=== PATIENT | female | born 1980 | race Asian ===

== ENCOUNTER 2018-05-07 19:35 | Emergency (ER) | payer OTHER ==
[~2018-05-07] VITALS: Ht 165.1 cm; Wt 62.1 kg
[2018-05-07] MEDS ORDERED: cloNIDine HCL 0.1 MG TAB ONE (21:13)
[2018-05-07] MEDS ORDERED: cloNIDine HCL 0.1 MG TAB PO ONE (21:30)
[2018-05-07 21:49] LABS: Basophils # (auto) 0 uL; Basophils % (auto) 0.3 % (0.0-2.0); Eosinophils # (auto) 0 uL; Eosinophils % (auto) 0.2 % (0.0-7.0); Hematocrit 39.8 % (36.0-46.0); Hemoglobin 13.8 g/dL (12.2-16.2); Lymphocytes # (auto) 1.8 uL; Mean Corpuscular Hemoglobin 31.1 pg (28.0-32.0); Mean Corpuscular Hgb Conc. 34.7 g/dL (32.0-36.0); Mean Corpuscular Volume 89.6 fL (80.0-100.0); Monocytes # (auto) 0.6 uL; Monocytes % (auto) 6.6 % (0.0-12.0); Neutrophils # (auto) 7.2 uL; Neutrophils % (auto) 73.9 % (37.0-80.0); Platelet Count (auto) 246 10^3/uL (140-450); Red Blood Cells 4.44 10^6/uL (4.0-5.20); Red Cell Distribution Width 12.9 % (11.8-14.3); White Blood Cell 9.7 10^3/uL (4.4-10.8)
[2018-05-07 22:12] LABS: Chloride 109 mmol/L (98-107); Potassium 3.9 mmol/L (3.5-5.1); Sodium 138 mmol/L (136-145)
[2018-05-07 22:18] LABS: Partial Thromboplastin Time 26.8 sec (23.78-33.04); Prothrombin Time 10.7 sec (9.27-12.13)
[2018-05-07 22:22] LABS: Alanine Aminotransferase 20 U/L (13-56); Albumin 3.6 g/dL (3.4-5.0); Alkaline Phosphatase 43 U/L (45-117); Anion Gap 6 (5-15); Aspartate Aminotransferase 17 U/L (15-37); BUN/Creatinine Ratio 15.6; Bilirubin, Total 0.2 mg/dL (0.2-1.0); Blood Urea Nitrogen 10 mg/dL (7-18); Calcium 8.6 mg/dL (8.5-10.1); Carbon Dioxide 23 mmol/L (21-32); GFR African American 134 mL/min; GFR Non-African American 111 mL/min; Glucose 94 mg/dL (74-106); Magnesium 2.4 mg/dL (1.6-2.6); Total Protein 7.7 g/dL (6.4-8.2)
[2018-05-07 23:44] LABS: Urine WBC None Seen /hpf (0 - 5)
[2018-05-07] MEDS ORDERED: ASPirin-EC 325mg tab PO ONE (23:45)
[2018-05-08 00:06] LABS: Urine Bacteria NONE SEEN /hpf (None Seen); Urine Blood TRACE /uL (Negative); Urine Specific Gravity 1.005 (1.001-1.035)
[2018-05-08 00:07] LABS: Alcohol, Urine < 3.0 mg/dL (0-5); Amphetamine Screen, Urine NEGATIVE (NEGATIVE); Barbiturate Scree,Urine NEGATIVE (NEGATIVE); Benzodiazephine Screen, Urine NEGATIVE (NEGATIVE); Cannabinoid Screen, Urine NEGATIVE (NEGATIVE); Cocaine Screen, Urine NEGATIVE (NEGATIVE); Opiate Scree,Urine NEGATIVE (NEGATIVE); Phencyclidine Screen, Urine NEGATIVE (NEGATIVE)
[2018-05-08] MEDS ORDERED: cloNIDine HCL 0.1 MG TAB PO ONE (00:30)
[2018-05-08 01:10] VITALS: BP 124/84
== END 2018-05-08 01:56 | disposition home or self-care (01) ==
LOC: ER 19:42
DX: R07.9 Chest pain, unspecified (principal); I10 Essential (primary) hypertension
CPT/HCPCS: 36415; 71046; 80053; 80307; 81001; 83735; 83880; 84443; 84484; 84702; 85025; 85610; 85730

== ENCOUNTER 2022-03-30 20:44 | Emergency (ER) | payer OTHER ==
[~2022-03-30] VITALS: Ht 165.1 cm; Wt 62.0 kg
[2022-03-30 22:52] LABS: Urine Bacteria FEW /hpf (None Seen); Urine Blood 2+ /uL (Negative); Urine Specific Gravity 1.021 (1.001-1.035); Urine WBC 1 /hpf (0 - 5)
[2022-03-30 23:34] LABS: Basophils # (auto) 0 10 ^3/uL (0-0.2); Basophils % (auto) 0.7 % (0.0-2.0); Eosinophils # (auto) 0.1 10 ^3/uL (0-0.8); Eosinophils % (auto) 1.2 % (0.0-7.0); Hematocrit 37.5 % (36.0-46.0); Hemoglobin 12.6 g/dL (12.2-16.2); Lymphocytes # (auto) 2.1 10 ^3/uL (0.4-5.4); Lymphocytes % (auto) 34.2 % (10.0-50.0); Mean Corpuscular Hemoglobin 29.9 pg (28.0-32.0); Mean Corpuscular Hgb Conc. 33.6 g/dL (32.0-36.0); Mean Corpuscular Volume 88.9 fL (80.0-100.0); Monocytes # (auto) 0.5 10 ^3/uL (0-1.3); Monocytes % (auto) 7.5 % (0.0-12.0); Neutrophils # (auto) 3.5 10 ^3/uL (1.6-8.6); Neutrophils % (auto) 56.4 % (37.0-80.0); Nucleated Red Blood Cells % 0.1 %; Red Blood Cells 4.22 10^6/uL (4.0-5.20); Red Cell Distribution Width 13.2 % (11.8-14.3); White Blood Cell 6.2 10^3/uL (4.4-10.8)
[2022-03-30 23:51] LABS: Alanine Aminotransferase 20 U/L (13-56); Albumin 3.3 g/dL (3.4-5.0); Anion Gap 6 (5-15); Aspartate Aminotransferase 12 U/L (15-37); BUN/Creatinine Ratio 27.5; Blood Urea Nitrogen 19 mg/dL (7-18); Calcium 8.3 mg/dL (8.5-10.1); Carbon Dioxide 23 mmol/L (21-32); Chloride 111 mmol/L (98-107); GFR African American 121 mL/min; GFR Non-African American 100 mL/min; Glucose 107 mg/dL (74-106); Lipase 157 U/L (73-393); Sodium 140 mmol/L (136-145)
[2022-03-30 23:54] LABS: Alkaline Phosphatase 54 U/L (45-117); Bilirubin, Total < 0.1 mg/dL (0.2-1.0); Total Protein 7.1 g/dL (6.4-8.2)
[2022-03-31] MEDS ORDERED: ONDANSETRON HCL 4 MG/2 ML VIAL IV ONE (00:30)
[2022-03-31] MEDS: KETOROLAC TROMETH 30 MG/ML 1ML VIAL IV ONE ×2 (00:30→02:51)
[2022-03-31 02:00] VITALS: BP 146/91
== END 2022-03-31 05:21 | disposition home or self-care (01) ==
LOC: ER 20:47
DX: N39.0 Urinary tract infection, site not specified (principal); Z32.02 Encounter for pregnancy test, result negative
CPT/HCPCS: 36415; 74176; 80053; 81001; 81025; 83690; 84702; 85025; 96374; 99284; J1885

== ENCOUNTER 2022-07-14 10:17 | Inpatient (IN) | payer OTHER ==
[2022-07-14] VITALS (14 sets, daily range): BP systolic 108–140; BP diastolic 70–85
[~2022-07-14] VITALS: Ht 165.1 cm; Wt 65.7 kg
[~2022-07-14 10:17] MED LIST: SUMA50TA2 PO
[2022-07-14] MEDS ORDERED: ASPirin 325 MG TAB PO ONE (10:45)
[2022-07-14 10:56] LABS: Basophils # (auto) 0 10 ^3/uL (0-0.2); Basophils % (auto) 0.5 % (0.0-2.0); Eosinophils # (auto) 0 10 ^3/uL (0-0.8); Eosinophils % (auto) 0.4 % (0.0-7.0); Hematocrit 41.4 % (36.0-46.0); Hemoglobin 14.1 g/dL (12.2-16.2); Lymphocytes # (auto) 2.3 10 ^3/uL (0.4-5.4); Lymphocytes % (auto) 32.9 % (10.0-50.0); Mean Corpuscular Hemoglobin 30.9 pg (28.0-32.0); Mean Corpuscular Hgb Conc. 34.1 g/dL (32.0-36.0); Mean Corpuscular Volume 90.8 fL (80.0-100.0); Monocytes # (auto) 0.5 10 ^3/uL (0-1.3); Monocytes % (auto) 6.7 % (0.0-12.0); Neutrophils # (auto) 4.3 10 ^3/uL (1.6-8.6); Neutrophils % (auto) 59.5 % (37.0-80.0); Nucleated Red Blood Cells % 0.2 %; Red Blood Cells 4.56 10^6/uL (4.0-5.20); White Blood Cell 7.1 10^3/uL (4.4-10.8)
[2022-07-14 11:06] LABS: INR 1.04 (0.9-1.15); Partial Thromboplastin Time 27.9 sec (24.6-33.4)
[2022-07-14 11:09] LABS: Albumin 3.7 g/dL (3.4-5.0); Calcium 8.8 mg/dL (8.5-10.1); Magnesium 2.3 mg/dL (1.6-2.6); Potassium 4.3 mmol/L (3.5-5.1)
[2022-07-14 11:13] LABS: Bilirubin, Total 0.8 mg/dL (0.2-1.0); Total Protein 7.1 g/dL (6.4-8.2)
[2022-07-14] MEDS ORDERED: IODIXANOL 320MG/ML 100ML BTL IV ONE (11:56)
[2022-07-14] MEDS ORDERED: LIDOCAINE 2%HCL (LOCAL ANESTH.) INJ 10ml MDV ONE (11:56)
[2022-07-14] MEDS ORDERED: VERAPAMIL 2.5MG/ML INJ 2ML VIAL IV ONE (12:11)
[2022-07-14] MEDS ORDERED: HEPARIN SODIUM (PORCINE) 5000 UNITS/ML 1ML VIAL ONE (12:11)
[2022-07-14] MEDS ORDERED: fentaNYL CITRATE 100 MCG/2 ML VL ONE (12:11)
[2022-07-14] MEDS ORDERED: ANGIOMAX 250 MG VIAL IV ONE (12:11)
[2022-07-14] MEDS ORDERED: MIDAZOLAM HCL 2MG/2ML 2ml VIAL (1mg/ml) ONE (12:12)
[2022-07-14] MEDS ORDERED: SODIUM CHL 0.9% 0 ML ONE (12:12)
[2022-07-14] MEDS ORDERED: CLOPIDOGREL BISULFATE 75 MG TAB PO ONE (13:00)
[2022-07-14] MEDS ORDERED: MORPHINE SULFATE INJ 2 MG/ml SYRG IV PRN (13:30)
[2022-07-14] MEDS ORDERED: NITROGLYCERIN 0.4 MG SL TAB SL PRN (13:30)
[2022-07-14] MEDS ORDERED: CLOPIDOGREL 300 MG TAB ONE (17:25)
[2022-07-14] MEDS ORDERED: CLOPIDOGREL 300 MG TAB PO ONE (17:28)
[2022-07-15 05:00] VITALS: BP 112/68
[2022-07-15 09:00] VITALS: BP 113/76
[2022-07-15] MEDS ORDERED: ATORVASTATIN 20 MG TAB PO SCH (10:00)
[2022-07-15] MEDS ORDERED: ASPirin 81 mg TAB PO SCH (10:00)
[2022-07-15] MEDS ORDERED: CLOPIDOGREL BISULFATE 75 MG TAB PO SCH (10:00)
[2022-07-15] MEDS ORDERED: ENOXAPARIN SOD 60 MG/0.6 ML SYRINGE SC ONE (10:15)
[2022-07-15 13:00] VITALS: BP 115/81
[2022-07-15] MEDS ORDERED: CLOP75TA70 PO (13:22)
[2022-07-15] MEDS ORDERED: ASPI-325 PO (13:22)
[2022-07-15] MEDS ORDERED: ATOR20TA50 PO (13:22)
[2022-07-15 17:00] VITALS: BP 120/74
== END 2022-07-15 18:43 | disposition home or self-care (01) | DRG 280 ==
LOC: ER 10:17 → TELE 13:32 → TELE-WESTW 18:10
PROVIDERS: ADMIT Internal Medicine; ATTEND Internal Medicine
PROC: 4A023N7 Measurement of Cardiac Sampling and Pressure, Left Heart, Percutaneous Approach (ICD-10-PCS; principal; 2022-07-14)
PROC: B211YZZ Fluoroscopy of Multiple Coronary Arteries using Other Contrast (ICD-10-PCS; 2022-07-14)
PROC: B215YZZ Fluoroscopy of Left Heart using Other Contrast (ICD-10-PCS; 2022-07-14)
DX: I21.4 Non-ST elevation (NSTEMI) myocardial infarction (principal); I25.42 Coronary artery dissection; I10 Essential (primary) hypertension; G43.909 Migraine, unspecified, not intractable, without status migrainosus; Z79.02 Long term (current) use of antithrombotics/antiplatelets; Z79.899 Other long term (current) drug therapy; Z82.49 Family history of ischemic heart disease and other diseases of the circulatory system; Z20.822 Contact with and (suspected) exposure to COVID-19
CPT/HCPCS: 36415; 71045; 80053; 83735; 83880; 84484; 84702; 85025; 85610; 85730; 86850; 86900; 86901; 87426; 93005; 93306; 93458; 99152; 99291; G0378; J2001; J2250; Q9967

== ENCOUNTER 2022-07-20 09:51 | Emergency (ER) | payer OTHER ==
[~2022-07-20] VITALS: Ht 165.1 cm; Wt 65.9 kg
[~2022-07-20 09:51] MED LIST changes: +ASPI-325 PO; +ATOR20TA50 PO; +CLOP75TA70 PO
[2022-07-20 10:31] LABS: Basophils # (auto) 0 10 ^3/uL (0-0.2); Basophils % (auto) 0.5 % (0.0-2.0); Eosinophils # (auto) 0 10 ^3/uL (0-0.8); Eosinophils % (auto) 0.3 % (0.0-7.0); Hematocrit 39.1 % (36.0-46.0); Hemoglobin 13.5 g/dL (12.2-16.2); Lymphocytes # (auto) 1.5 10 ^3/uL (0.4-5.4); Lymphocytes % (auto) 25.3 % (10.0-50.0); Mean Corpuscular Hgb Conc. 34.5 g/dL (32.0-36.0); Mean Corpuscular Volume 89.7 fL (80.0-100.0); Monocytes # (auto) 0.5 10 ^3/uL (0-1.3); Monocytes % (auto) 7.9 % (0.0-12.0); Nucleated Red Blood Cells % 0.1 %; Red Blood Cells 4.36 10^6/uL (4.0-5.20); Red Cell Distribution Width 12.7 % (11.8-14.3); White Blood Cell 6.1 10^3/uL (4.4-10.8)
[2022-07-20 10:40] LABS: Albumin 3.4 g/dL (3.4-5.0); BUN/Creatinine Ratio 21.1; Potassium 3.9 mmol/L (3.5-5.1)
[2022-07-20 10:43] LABS: Bilirubin, Total 0.4 mg/dL (0.2-1.0); Total Protein 7.2 g/dL (6.4-8.2)
[2022-07-20 11:09] LABS: INR 1.08 (0.9-1.15); Partial Thromboplastin Time 26.6 sec (24.6-33.4)
[2022-07-20 14:48] VITALS: BP 123/81
== END 2022-07-20 14:49 | disposition home or self-care (01) ==
LOC: ER 09:51
DX: R07.89 Other chest pain (principal); Z79.82 Long term (current) use of aspirin; Z79.01 Long term (current) use of anticoagulants; Z79.899 Other long term (current) drug therapy
CPT/HCPCS: 36415; 71045; 80053; 84484; 85025; 85379; 85610; 85730; 93005

== ENCOUNTER 2022-12-17 10:12 | Emergency (ER) | payer OTHER ==
[~2022-12-17] VITALS: Ht 165.1 cm; Wt 61.4 kg
[2022-12-17 10:17] VITALS: BP 130/86
[2022-12-17] MEDS ORDERED: KETOROLAC TROMETH 30 MG/ML 1ML VIAL IV ONE (11:45)
[2022-12-17] MEDS ORDERED: KETOROLAC TROMETH 30 MG/ML 1ML VIAL IM ONE (12:00)
[2022-12-17] MEDS ORDERED: IBUP1TAB5 PO (12:45)
== END 2022-12-17 12:48 | disposition home or self-care (01) ==
LOC: ER 10:12
DX: G44.209 Tension-type headache, unspecified, not intractable (principal)
CPT/HCPCS: 96372; 99283; J1885

== ENCOUNTER 2022-12-26 11:52 | Emergency (ER) | payer OTHER ==
[~2022-12-26] VITALS: Ht 165.1 cm; Wt 59.0 kg
[~2022-12-26 11:52] MED LIST changes: +IBUP1TAB5 PO
[2022-12-26 12:43] LABS: Urine WBC None Seen /hpf (0 - 5)
[2022-12-26 13:10] LABS: Urine Bacteria NONE SEEN /hpf (None Seen); Urine Blood Negative /uL (Negative); Urine Specific Gravity 1.008 (1.001-1.035)
[2022-12-26 13:15] LABS: Basophils # (auto) 0 10 ^3/uL (0-0.2); Basophils % (auto) 0.4 % (0.0-2.0); Eosinophils # (auto) 0 10 ^3/uL (0-0.8); Eosinophils % (auto) 0.4 % (0.0-7.0); Hematocrit 41.4 % (36.0-46.0); Hemoglobin 14.1 g/dL (12.2-16.2); Lymphocytes # (auto) 1.5 10 ^3/uL (0.4-5.4); Lymphocytes % (auto) 21.9 % (10.0-50.0); Mean Corpuscular Hemoglobin 30.6 pg (28.0-32.0); Mean Corpuscular Hgb Conc. 34.1 g/dL (32.0-36.0); Mean Corpuscular Volume 89.7 fL (80.0-100.0); Monocytes # (auto) 0.4 10 ^3/uL (0-1.3); Monocytes % (auto) 5.6 % (0.0-12.0); Neutrophils # (auto) 4.9 10 ^3/uL (1.6-8.6); Neutrophils % (auto) 71.7 % (37.0-80.0); Red Blood Cells 4.62 10^6/uL (4.0-5.20); Red Cell Distribution Width 13.2 % (11.8-14.3); White Blood Cell 6.8 10^3/uL (4.4-10.8)
[2022-12-26 13:32] LABS: Calcium 9.3 mg/dL (8.5-10.1); Magnesium 2.5 mg/dL (1.6-2.6); Potassium 3.8 mmol/L (3.5-5.1)
[2022-12-26 13:50] VITALS: BP 141/90
[2022-12-26] MEDS ORDERED: IBUP-1456 PO (14:24)
== END 2022-12-26 14:28 | disposition home or self-care (01) ==
LOC: ER 11:52
DX: G44.209 Tension-type headache, unspecified, not intractable (principal); Z79.899 Other long term (current) drug therapy; Z87.440 Personal history of urinary (tract) infections
CPT/HCPCS: 36415; 70450; 80048; 81001; 83735; 85025

== ENCOUNTER 2024-10-19 18:38 | Emergency (ER) | payer OTHER ==
[~2024-10-19] VITALS: Ht 165.1 cm; Wt 65.0 kg
[~2024-10-19 18:38] MED LIST changes: +IBUP-1456 PO
--- NOTE | 2024-10-19 19:16 | ED.PDOC ---
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 Patient states she had no menstrual cycle for 1 year, began experiencing heavy vaginal bleeding yesterday as well as suprapubic pain/ cramping that radiates to low back. Patient states she uses about 5 pads per day. Patient has been seen by OBGYN Dr. Ferguson. PMHx HLD. Denies chest pain, shortness of breath, dizziness, nausea, vomiting, diarrhea, headache, fevers, chills. No other symptoms or modifying factors present at this time. Chief Complaint: Vaginal Bleed Time Seen by MD: 19:05 Reviewed Notes: Medications, Allergies Allergies: Coded Allergies: NO KNOWN ALLERGIES (Unverified , 05/07/18) Home Meds Active Scripts Ibuprofen (Ibuprofen) 800 Mg Tab, 1 TAB PO TID, #30 TAB Prov:DARCI MARS 12/26/22 Ibuprofen Micronized (Ibuprofen) 600 Mg Tab, 600 MG PO Q6HPRN PRN for 5 Days, #20 TAB Prov:OLVIN AVILA NP 12/17/22 Atorvastatin Calcium (ATORVASTATIN CALCIUM) 20 Mg Tab, 40 MG PO QPM for 30 Days, #60 TAB 1 Refill Prov:RUDY RAE MD 07/15/22 Clopidogrel Bisulfate (CLOPIDOGREL) 75 Mg Tab, 75 MG PO DAILY for 30 Days, #30 TAB Prov:RUDY RAE MD 07/15/22 Aspirin (Aspirin Low Dose) 81 Mg Tab, 81 MG PO DAILY for 30 Days, #30 TAB Prov:RUDY RAE MD 07/15/22 Sumatriptan Succinate (Imitrex) 50 Mg Tab, 50 MG PO BID, #20 TAB Prov:DARCI MARS 05/16/22 Information Source: Patient Mode of Arrival: Ambulatory Timing: Days Prehospital treatment: None Severity: Moderate Vaginal Discharge: None Vaginal Lesions: None Bleeding Quality: Bright Red Vaginal Mass: None Onset Of Mass/Bleeding: Spontaneous Associated Signs and Symptoms: Vaginal Bleeding, Abdominal Pain, Cramping Vital Signs Vital Signs Date Time Temp Pulse Resp B/P (MAP) Pulse Ox O2 Delivery O2 Flow Rate FiO2 10/19/24 21:14 Room Air* 0 21 10/19/24 21:14 98.6 74 12 139/84 (102) 98 98.6 Physical Exam General: Awake, alert and oriented. No acute distress. Skin: Skin in warm, dry and intact. Appropriate color for ethnicity. HEENT: The head is normocephalic and atraumatic. Conjunctivae are clear without exudates or hemorrhage. Sclera is non-icteric. EOM are intact. No signs of nystagmus. Eyelids are normal in appearance without swelling or lesions. Oral mucosa is pink and moist Neck: The neck is supple with normal range of motion. No JVD. Cardiac: Heart rate and rhythm are normal. No murmurs, gallops, or rubs are auscultated. Respiratory: No signs of respiratory distress. Lung sounds are clear in all lobes bilaterally without rales, rhonchi, or wheezes. Abdominal: Abdomen is soft, positive suprapubic tenderness without distention. Bowel sounds are present and normoactive in all four quadrants. NO CVA TENDERNESS Extremities: Upper and lower extremities are atraumatic in appearance without deformity or edema. Neurological: The patient is awake, alert and oriented to person, place, and time with normal speech. Speech is clear. There is no facial asymmetry. Psychiatric: Appropriate mood and affect. Good judgement and insight. Review of Systems: REVIEW OF SYSTEMS: No fever, no chills, or fatigue HEENT: No sore throat, no earache, no congestion, no neck pain. Cardiac: No chest pain. No palpitations. Lungs: No shortness of breath, no cough. GI: No nausea, no vomiting, no diarrhea, no constipation, POSITIVE abdominal pain : No dysuria, frequency, or urgency. No hematuria. POSITIVE VAGINAL BLEEDING Musculoskeletal: No joint pain , no joint swelling, no extremity edema. Skin: No rash, no itching. 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 Was a procedure done?: No Differential Diagnosis (MACHINIST GENERAL) Vaginal Bleeding: - Complete, - Incomplete, - Inevitable, - Missed, - Threatened, Abruptio Placentae, Blood Loss Anemia, Dysmenorrhea, Ectopic , Hormonal, Menorrhagia, PID, UTI, Vaginitis, Other X-Ray, Labs, Meds, VS Vital Signs Date Time Temp Pulse Resp B/P (MAP) Pulse Ox O2 Delivery O2 Flow Rate FiO2 10/19/24 21:14 Room Air* 0 21 10/19/24 21:14 98.6 74 12 139/84 (102) 98 98.6 10/19/24 19:02 97.5 82 16 146/91 (109) 97 97.5 Lab Test 10/19/24 19:32 10/19/24 19:09 Range/Units White Blood Count 8.0 4.4-10.8 10^3/uL Red Blood Count 4.19 4.0-5.20 10^6/uL Hemoglobin 13.0 12.2-16.2 g/dL Hematocrit 36.8 36.0-46.0 % Mean Corpuscular Volume 87.9 80.0-100.0 fL Mean Corpuscular Hemoglobin 30.9 28.0-32.0 pg Mean Corpuscular Hemoglobin Concent 35.2 32.0-36.0 g/dL Red Cell Distribution Width 13.4 11.8-14.3 % Platelet Count 245 140-450 10^3/uL Mean Platelet Volume 8.5 6.9-10.8 fL Neutrophils (%) (Auto) 69.1 37.0-80.0 % Lymphocytes (%) (Auto) 20.0 10.0-50.0 % Monocytes (%) (Auto) 9.8 0.0-12.0 % Eosinophils (%) (Auto) 0.7 0.0-7.0 % Basophils (%) (Auto) 0.4 0.0-2.0 % Neutrophils # (Auto) 5.5 1.6-8.6 10 ^3/uL Lymphocytes # (Auto) 1.6 0.4-5.4 10 ^3/uL Monocytes # (Auto) 0.8 0-1.3 10 ^3/uL Eosinophils # (Auto) 0.1 0-0.8 10 ^3/uL Basophils # (Auto) 0 0-0.2 10 ^3/uL Nucleated Red Blood Cells 0.1 % Sodium Level 140 136-145 mmol/L Potassium Level 3.8 3.5-5.1 mmol/L Chloride Level 107 98-107 mmol/L Carbon Dioxide Level 25 20-31 mmol/L Anion Gap 8 5-15 Blood Urea Nitrogen 17 9-23 mg/dL Creatinine 0.75 0.550-1.02 mg/dL Glomerular Filtration Rate Calc 101 >90 mL/min BUN/Creatinine Ratio 22.7 H 10.0-20.0 Serum Glucose 110 H 74-106 mg/dL Calcium Level 9.7 8.7-10.4 mg/dL Total Bilirubin 0.4 0.2-1.0 mg/dL Aspartate Amino Transferase (AST) 23 13-40 U/L Alanine Aminotransferase (ALT) 20 7-40 U/L Alkaline Phosphatase 79 46-116 U/L Total Protein 7.3 5.7-8.2 g/dL Albumin 4.5 3.2-4.8 g/dL Urine Color Colorless Yellow Urine Clarity Clear Clear Urine pH 5.5 5.0-9.0 Urine Specific [place] 1.009 1.001-1.035 Urine Protein Negative Negative Urine Ketones Negative Negative Urine Blood 2+ H Negative /uL Urine Nitrite Negative Negative Urine Bilirubin Negative Negative Urine Urobilinogen Normal Negative mg/dL Urine Leukocyte Esterase Negative Negative /uL Urine RBC 58 0 - 4 /hpf Urine Microscopic WBC 1 0-5 /HPF Urine Squamous Epithelial Cells None seen <5 /hpf Urine Bacteria None seen None Seen /hpf Urine Glucose Normal Normal mg/dL Urine Test Negative Negative 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 FINDINGS: UTERUS: Anteverted, measuring 7.6 x 4.8 x 615 cm in length. Homogeneous myometrium without a discrete lesion. Facets is is anteverted. Cysts seen in the fundus of the uterus measuring 0.4 x 0.3 x 0.3 cm. ENDOMETRIAL STRIPE: 0.6 cm in thickness. Homogenous echotexture. No fluid in the endometrial canal. CERVIX: Multiple subcentimeter simple Nabothian cysts are seen. The largest cyst within 1.03 x 0.83 x 1.5 disseminated V RIGH OVARY: 4.4 x 4.34 x 3.05 cm in length. 07/14/2045 mL in volume. Preserved vascular flow. The right ovary has a complex lesion with peripheral vascularity measuring 2.8 x 2.8 x 1 4 cm.. LEFT OVARY: 3148 x 3.66 x 3.82 cm in length. 07/09/2045 mL in volume. Preserved vascular flow. The left ovary also has a complex structure peripheral vascular measuring 3.0 x 1.9 x 3.3 cm. Distal suggested of the left ovary is. CUL-DE-SAC: No significant fluid noted. OTHER: None. IMPRESSION: 1. Both ovaries have complex lesion as described above. I would recommend further mixer slagman consultation. 2. Small cysts seen in the fundus of the uterus measuring 0.4 x 0.3 x 0.3 cm 3. Multiple nabothian cysts in the cervix. ATED BY: MONE PAL MD DICTATED DATE/TIME: 10/19/242118 SIGNED BY: MONE PAL MD SIGNED DATE/TIME: 10/19/242118 CC: Time of 1ST Reevaluation: 19:35 Reevaluation 1ST: Unchanged Patient Education/Counseling: Need For Follow Up Family Education/Counseling: No Family Present Departure 1 Departure Time of Disposition: 21:51 Impression: Primary Impression: Abnormal uterine bleeding Disposition: HOME / SELF CARE / HOMELESS Condition: Stable Additional Instructions: ED DISCHARGE INSTRUCTIONS INSTRUCTIONS: PLEASE READ ALL INSTRUCTIONS PROVIDED IN THIS PACKET CAREFULLY. ALTHOUGH YOU HAVE BEEN DISCHARGED FROM THE EMERGENCY DEPARTMENT, THIS DOES NOT M DONALD THAT YOU HAVE A "CLEAN BILL OF HEALTH". []NO DEFINITIVE DIAGNOSIS FOR YOUR SYMPTOMS HAS BEEN MADE TODAY. IT IS POSSIBLE THAT YOU ARE IN THE PROCESS OF DEVELOPING A SERIOUS ILLNESS. THIS IS WHY YOU MUST RETURN TO THE ED WITHOUT FAIL IF ANY NEW OR WORSENING SYMPTOMS (ESPECIALLY IF YOUR SYMPTOMS INCLUDE LIGHTHEADEDNESS, GOING THROUGH MORE THAN 1 PAD PER HOUR, WEAKNESS, DIZZINESS, CHEST PAIN, TROUBLE BREATHING, WORSENING ABDOMINAL PAIN, FEVER, HEADACHE, CONFUSION, TROUBLE SEEING, OR TROUBLE WALKING) IT IS ALSO VERY IMPORTANT THAT YOU SEE A PRIMARY CARE DOCTOR WITHIN THE NEXT 3-5 DAYS TO FOLLOW UP. Is important that you get an appointment with your rubber goods inspector tester to be seen sooner. A copy of your ultrasound report is included below IF YOU ARE UNABLE TO GET AN APPOINTMENT, RETURN TO THE ED FOR RE-EVALUATION. Abnormal Uterine Bleeding: Care Instructions Overview Abnormal uterine bleeding is irregular bleeding from the uterus. It may be bleeding that is heavier, concert pianist, or lasts longer than your usual period. Or it may be bleeding that doesn't occur at your regular time. Sometimes it is caused by changes in hormone levels. It can also be caused by growths in the uterus, such as fibroids or polyps. Sometimes a cause cannot be found. You may have bleeding when you are not expecting your period. Your doctor may suggest a test. Follow-up care is a tanner part of your treatment and safety. Be sure to make and go to all appointments, and call your doctor if you are having problems. It's also a good idea to know your test results and keep a list of the medicines you take. How can you care for yourself at home? Be safe with medicines. Take pain medicines exactly as directed. If the doctor gave you a prescription medicine for pain, take it as prescribed. If you are not taking a prescription pain medicine, ask your doctor if you can take an [id number] medicine. You may be low in iron because of blood loss. Eat a balanced diet that is high in iron and vitamin C. Foods rich in iron include red meat, shellfish, eggs, beans, and leafy green vegetables. Talk to your doctor about whether you need to take iron pills or a multivitamin. When should you call for help? Call 911 anytime you think you may need emergency care. For example, call if: You passed out (lost consciousness). Call your doctor now or seek immediate medical care if: You have new or worse belly or pelvic pain. You have severe vaginal bleeding. You feel dizzy or lightheaded, or you feel like you may faint. Watch closely for changes in your health, and be sure to contact your doctor if: You think you may be . Your bleeding gets worse. You do not get better as expected. Credits for Abnormal Uterine Bleeding: Care Instructions Current as of: October 13, 2023 Author: [employer] Staff Clinical Review Board All [employer] education is reviewed by a team that includes physicians, nurses, advanced practitioners, registered dieticians, and other healthcare professionals. ULTRASOUND REPORT: PATIENT: SONIA PATEL ACCT: [id number] UNIT: [id number] : 1980 LOC: ER ROOM / BED: / AGE / SEX: 44 / F ADM STATUS: REG ER SERVICE 10 ORDERING PHYSICIAN: GENA MEADOWS MD PROCEDURE(s): PELUS - PELVIC REASON: Abnormal vaginal bleeding ORDER NUMBER(s): [id number], ACCESSION NUMBER(s): [id number] Procedure: US PELVIC 10/19/2024 08:09 PM Indication: Abnormal vaginal bleeding Comparison: None Technique: Real-time grayscale and color images were obtained . FINDINGS: UTERUS: Anteverted, measuring 7.6 x 4.8 x 615 cm in length. Homogeneous myometrium without a discrete lesion. Facets is is anteverted. Cysts seen in the fundus of the uterus measuring 0.4 x 0.3 x 0.3 cm. ENDOMETRIAL STRIPE: 0.6 cm in thickness. Homogenous echotexture. No fluid in the endometrial canal. CERVIX: Multiple subcentimeter simple Nabothian cysts are seen. The largest cyst within 1.03 x 0.83 x 1.5 disseminated V RIGH OVARY: 4.4 x 4.34 x 3.05 cm in length. 07/14/2045 mL in volume. Preserved vascular flow. The right ovary has a complex lesion with peripheral vascularity measuring 2.8 x 2.8 x 1 4 cm.. LEFT OVARY: 3148 x 3.66 x 3.82 cm in length. 07/09/2045 mL in volume. Preserved vascular flow. The left ovary also has a complex structure peripheral vascular measuring 3.0 x 1.9 x 3.3 cm. Distal suggested of the left ovary is. CUL-DE-SAC: No significant fluid noted. OTHER: None. IMPRESSION: 1. Both ovaries have complex lesion as described above. I would recommend further mixer slagman consultation. 2. Small cysts seen in the fundus of the uterus measuring 0.4 x 0.3 x 0.3 cm 3. Multiple nabothian cysts in the cervix. ATED BY: MONE PAL MD DICTATED DATE/TIME: 10/19/242118 SIGNED BY: MONE PAL MD SIGNED DATE/TIME: 10/19/242118 CC: e-Prescriptions Acetaminophen (Acetaminophen Er) 650 Mg Tab 650 MG PO TIDPRN PRN for 5 Days, #15 TAB Prov: GENA MEADOWS MD 10/19/24 Comments 44-YEAR-OLD FEMALE WHO PRESENTED WITH PELVIC PAIN AND VAGINAL BLEEDING. NO PERITONEAL SIGNS ON ABDOMINAL EXAM. NO EVIDENCE OF ACUTE ABDOMEN AT THIS TIME. PATIENT IS WELL APPEARING. LABS SHOW NO LEUKOCYTOSIS OR ELEVATION OF LFTS. ULTRASOUND OF THE PELVIS SHOWS ABNORMAL FINDINGS. PATIENT IS ADVISED TO FOLLOW UP WITH HER OPENSTACK DEVELOPER. PATIENT IS AFEBRILE. PATIENT IS NOT HYPOTENSIVE. PATIENT IS NOT ANEMIC. LOW SUSPICION FOR ACUTE HEPATOBILIARY DISEASE (INCLUDING ACUTE CHOLECYSTITIS, ACUTE PANCREATITIS, PUD (INCLUDING PERFORATION), ACUTE INFECTIOUS PROCESS (PNEUMONIA, HEPATITIS, PYELONEPHRITIS), ACUTE APPENDICITIS, VASCULAR CATASTROPHE, BOWEL OBSTRUCTIONS, VISCOUS PERFORATION. PRESENTATION NOT CONSISTENT WITH OTHER ACUTE, EMERGENT CAUSES OF ABDOMINAL PAIN AT THIS TIME. Extensive evaluation was performed in attempt to identify or rule out: (See differential diagnosis section) The following tests were ordered, and results were reviewed by me and discussed with patient: (See diagnostic results section) The following test were independently interpreted by me: N/A I reviewed and agreed with the following test results read by other providers: N/A I reviewed the following notes from the pt's past medical encounters: ENCOUNTER 2022 FOR HEADACHE AT THIS FACILITY Additional information was gathered from interviewing the following independent historians: N/A Decision regarding hospitalization or escalation of hospital level of care: Risks and benefits of admission for further treatment of patient's condition was considered however due to patient's stable condition patient will be discharged to follow up closely or return to care for worsening of condition or inability to follow up. Critical Care Note Critical Care Time?: No Stability Stability form required: No I personally scribed for GENA MEADOWS MD ([email or web address]) on 10/19/24 at 19:16. Electronically submitted by Emily Cox ([email or web address]). GENA MEADOWS MD October 19, 2024 19:16
[2024-10-19 19:52] LABS: Urine Bacteria None Seen /hpf (None Seen)
[2024-10-19 20:06] LABS: Urine Blood 2+ /uL (Negative); Urine Clarity Clear (Clear); Urine Color Colorless (Yellow); Urine Protein, UAD Negative (Negative); Urine Specific Gravity 1.009 (1.001-1.035); Urine Squamous Epithelial Cell None Seen /hpf (<5); Urine Urobilinogen Normal (Negative); Urine WBC 1 /HPF (0-5); Urine pH 5.5 (5.0-9.0)
[2024-10-19 20:08] LABS: Basophils # (auto) 0 10 ^3/uL (0-0.2); Basophils % (auto) 0.4 % (0.0-2.0); Eosinophils # (auto) 0.1 10 ^3/uL (0-0.8); Eosinophils % (auto) 0.7 % (0.0-7.0); Hematocrit 36.8 % (36.0-46.0); Lymphocytes # (auto) 1.6 10 ^3/uL (0.4-5.4); Mean Corpuscular Hemoglobin 30.9 pg (28.0-32.0); Mean Corpuscular Hgb Conc. 35.2 g/dL (32.0-36.0); Mean Corpuscular Volume 87.9 fL (80.0-100.0); Monocytes # (auto) 0.8 10 ^3/uL (0-1.3); Monocytes % (auto) 9.8 % (0.0-12.0); Neutrophils # (auto) 5.5 10 ^3/uL (1.6-8.6); Neutrophils % (auto) 69.1 % (37.0-80.0); Nucleated Red Blood Cells % 0.1 %; Platelet Count (auto) 245 10^3/uL (140-450); Red Blood Cells 4.19 10^6/uL (4.0-5.20); Red Cell Distribution Width 13.4 % (11.8-14.3)
[2024-10-19 20:22] LABS: Alanine Aminotransferase 20 U/L (7-40); Albumin 4.5 g/dL (3.2-4.8); Alkaline Phosphatase 79 U/L (46-116); Anion Gap 8 (5-15); Aspartate Aminotransferase 23 U/L (13-40); BUN/Creatinine Ratio 22.7 (10.0-20.0); Bilirubin, Total 0.4 mg/dL (0.2-1.0); Blood Urea Nitrogen 17 mg/dL (9-23); Calcium 9.7 mg/dL (8.7-10.4); Carbon Dioxide 25 mmol/L (20-31); Potassium 3.8 mmol/L (3.5-5.1); Sodium 140 mmol/L (136-145); Total Protein 7.3 g/dL (5.7-8.2)
[2024-10-19 20:23] LABS: Chloride 107 mmol/L (98-107); Glucose 110 mg/dL (74-106)
[2024-10-19 21:14] VITALS: BP 139/84; PULSE 74; RESP 12; TEMP 98.6; O2SAT 98
--- NOTE | 2024-10-19 21:21 | DVH ---
Procedure: US PELVIC 10/19/2024 08:09 PM Indication: Abnormal vaginal bleeding Comparison: None Technique: Real-time grayscale and color images were obtained . FINDINGS: UTERUS: Anteverted, measuring 7.6 x 4.8 x 615 cm in length. Homogeneous myometrium without a discre te lesion. Facets is is anteverted. Cysts seen in the fundus of the uterus measuring 0.4 x 0.3 x 0.3 cm. ENDOMETRIAL STRIPE: 0.6 cm in thickness. Homogenous echotexture. No fluid in the endometrial canal. CERVIX: Multiple subcentimeter simple Nabothian cysts are seen. The largest cyst within 1.03 x 0.83 x 1.5 disseminated V RIGH OVARY: 4.4 x 4.34 x 3.05 cm in length. 07/14/2045 mL in volume. Preserved vascular flow. The r ight ovary has a complex lesion with peripheral vascularity measuring 2.8 x 2.8 x 1 4 cm.. LEFT OVARY: 3148 x 3.66 x 3.82 cm in length. 07/09/2045 mL in volume. Preserved vascular flow. The l eft ovary also has a complex structure peripheral vascular measuring 3.0 x 1.9 x 3.3 cm. Distal sugge sted of the left ovary is. CUL-DE-SAC: No significant fluid noted. OTHER: None. IMPRESSION: 1. Both ovaries have complex lesion as described above. I would recommend further office nurse practitioner consultation. 2. Small cysts seen in the fundus of the uterus measuring 0.4 x 0.3 x 0.3 cm 3. Multiple nabothian cysts in the cervix.
[2024-10-19] MEDS ORDERED: ACET650T12 PO (21:55)
== END 2024-10-19 23:18 | disposition home or self-care (01) ==
LOC: ER 18:38
DX: N93.9 Abnormal uterine and vaginal bleeding, unspecified (principal); F41.9 Anxiety disorder, unspecified; Z79.02 Long term (current) use of antithrombotics/antiplatelets; Z79.82 Long term (current) use of aspirin; Z87.440 Personal history of urinary (tract) infections
CPT/HCPCS: 36415; 76856; 80053; 81001; 81025; 85025